=== PATIENT | male | born 1990 | race African-American/Black ===

== ENCOUNTER 2016-10-17 01:43 | Inpatient (IN) | payer OTHER ==
[~2016-10-17] VITALS: Ht 188 cm; Wt 121.5 kg
[~2016-10-17 01:43] MED LIST: ALBUTEROL SULF8.5 GM IH; AUGMENTIN875 MG PO; Aspirin E.C. PO; BACTRIM,SEPT1 TABLET PO; BENTYL10 MG PO; CLEOCIN300 MG PO; CLINDAMYCIN HC300 MG PO; Colace PO; FLONASE16 G1 BOTH NARES; IBUPROFEN800 MG PO; K-Dur PO; KEFLEX500 MG PO; LANTUS 10100 UNITS/ SC; LANTUS 3 M100 UNITS/ SC; LANTUS 3 M100 UNITS1 SC; MOTRIN600 MG PO; MUCUS RELIEF600 M1 PO; Mylicon,Mylanta Gas, PO; NAPROSYN500 MG PO; NOHOMEMEDS; NORCO 5/3251 TABLET PO; NOVOLOG 10100 UNITS/ SC; NOVOLOG PE100 UNITS/ SC; Novolog 100 units/ml SC; PERCOCET 5/31 TABLET PO; ROBITUSSIN NIG118 ML PO; TESSALON PERLE100 MG PO; TRAMADOL HCL50 MG PO; ULTRAM50 MG PO; Vicodin,Norco 5/325 PO; ZITHROMAX Z-PA250 MG PO; ZOFRAN4 MG PO
[2016-10-17 02:07] LABS: CREATININE 0.8 mg/dL (0.6-1.3); POTASSIUM 3.8 mEq/L (3.7-5.4)
[2016-10-17 02:10] LABS: HEMATOCRIT 46.8 % (38.0-50.0); MCH 27.9 PG (29.0-34.0); MCHC 33.1 G/DL (30.0-36.0); MCV 84.3 FL (86-99); RBC DIS.WIDTH-CV 12.5 % (11.8-14.6); RBC DIS.WIDTH-SD 38.5 % (39-53); RED BLOOD COUNT 5.55 M/uL (4.00-5.50); WHITE BLOOD COUNT 6.8 K/uL (4.1-10.2)
[2016-10-17 02:21] LABS: CHLORIDE 100 mEq/L (99-109); POTASSIUM 3.9 mEq/L (3.7-5.4); SODIUM 136 mEq/L (136-147)
[2016-10-17 02:24] LABS: GLUCOSE 379 mg/dL (70-99)
[2016-10-17 02:25] LABS: ANION GAP 11 MEQ/L (2-14); TOTAL BILIRUBIN 0.5 mg/dL (0.0-1.0)
[2016-10-17 02:27] LABS: ALKALINE PHOSPHATASE 81 IU/L (3-129); GFR ESTIMATE (CALCULATED) > 59 mL/min/
[2016-10-17 02:28] LABS: UREA NITROGEN (BUN) 12 mg/dL (9-23)
[2016-10-17 02:29] LABS: DIRECT BILIRUBIN 0.2 mg/dL (0.0-0.3)
[2016-10-17 02:31] LABS: LIPASE 6 U/L (1.0-51.0)
[2016-10-17 02:50] LABS: PLATELET CLUMPS PRESENT - PLATELET COUNT APPEARS ADQ.; PLATELET COUNT UNABLE TO REPORT K/uL (156-360)
[2016-10-17 04:39] LABS: ADD MIUA? NO; BILIRUBIN NEGATIVE; BLOOD NEGATIVE; COLOR YELLOW ((YELLOW)); GLUCOSE (STRIP) >=500; KETONES 20; LEUKOCYTES NEGATIVE; NITRITE NEGATIVE; PROTEIN (STRIP) NEGATIVE; UCUL ADDED? NO; UROBILINOGEN 0.2 MG/DL (0.2-1.0)
[2016-10-17 04:48] LABS: SPECIFIC GRAVITY 1.065 (1.000-1.030)
[2016-10-17 10:04] LABS: POINT-OF-CARE METER ID UU13113675
[2016-10-17 13:21] VITALS: BP 148/85
[2016-10-17 17:25] LABS: POINT-OF-CARE METER ID UU14162508
[2016-10-17 19:28] VITALS: BP 134/69
[2016-10-17 23:23] VITALS: BP 131/73
[2016-10-18 03:48] VITALS: BP 130/60
[2016-10-18 06:35] LABS: POINT-OF-CARE METER ID UU14162508
[2016-10-18 08:05] VITALS: BP 145/79
[2016-10-18 08:13] LABS: ANION GAP 10 MEQ/L (2-14); CHLORIDE 103 MEQ/L (99-109); GFR ESTIMATE (CALCULATED) > 59 mL/min/; GLUCOSE 236 mg/dL (70-99); MAGNESIUM 1.6 mg/dl (1.3-2.7); POTASSIUM 4.3 MEQ/L (3.7-5.4); SAMPLE HEMOLYSIS CHECK 0; SAMPLE ICTERIC CHECK 0; SAMPLE LIPEMIA CHECK 0; SODIUM 136 MEQ/L (136-147); UREA NITROGEN (BUN) 6 mg/dL (9-23)
[2016-10-18 08:25] LABS: HEMATOCRIT 44.3 % (38.0-50.0); MCH 28.5 PG (29.0-34.0); MCHC 33.4 G/DL (30.0-36.0); MCV 85.4 FL (86-99); MEAN PLAT.VOLUME 12.2 uM^3 (9.0-12.4); RBC DIS.WIDTH-CV 12.8 % (11.8-14.6); RBC DIS.WIDTH-SD 40.1 % (39-53); RED BLOOD COUNT 5.19 M/uL (4.00-5.50)
[2016-10-18 09:01] LABS: PLATELET COUNT 199 K/uL (156-360); WHITE BLOOD COUNT 12.8 K/uL (4.1-10.2)
[2016-10-18 11:50] VITALS: BP 157/85
[2016-10-18] MEDS ORDERED: LANTUS 10100 UNITS/ SC (12:49)
[2016-10-18] MEDS ORDERED: NOVOLOG 10100 UNITS/ SC (12:50)
[2016-10-18 15:53] LABS: Estimated Average Glucose 258 mg/dL (70-123); HEMOGLOBIN A1c (GLYCOHEMOGLOB) 10.6 % HGB (Below 5.7)
[2016-10-18 15:55] VITALS: BP 144/87
[2016-10-18 20:58] VITALS: BP 143/78
[2016-10-18 23:17] VITALS: BP 143/81
[2016-10-19 04:36] VITALS: BP 153/78
[2016-10-19 06:23] LABS: POINT-OF-CARE METER ID UU14162508
[2016-10-19 06:49] LABS: HEMATOCRIT 41.9 % (38.0-50.0); MCH 27.8 PG (29.0-34.0); MCHC 32.5 G/DL (30.0-36.0); MCV 85.7 FL (86-99); MEAN PLAT.VOLUME 12.5 uM^3 (9.0-12.4); PLATELET COUNT 196 K/uL (156-360); RBC DIS.WIDTH-CV 13.2 % (11.8-14.6); RBC DIS.WIDTH-SD 41.2 % (39-53); RED BLOOD COUNT 4.89 M/uL (4.00-5.50)
[2016-10-19 07:12] LABS: ANION GAP 11 MEQ/L (2-14); CHLORIDE 104 MEQ/L (99-109); GFR ESTIMATE (CALCULATED) > 59 mL/min/; GLUCOSE 224 mg/dL (70-99); MAGNESIUM 1.7 mg/dl (1.3-2.7); POTASSIUM 3.9 MEQ/L (3.7-5.4); SAMPLE HEMOLYSIS CHECK 0; SAMPLE ICTERIC CHECK 0; SAMPLE LIPEMIA CHECK 0; SODIUM 138 MEQ/L (136-147); UREA NITROGEN (BUN) 7 mg/dL (9-23)
[2016-10-19 07:45] VITALS: BP 143/87
[2016-10-19 12:21] VITALS: BP 170/90
[2016-10-19 16:48] VITALS: BP 157/90
[2016-10-19 20:00] VITALS: BP 162/81
[2016-10-20 00:21] VITALS: BP 143/84
[2016-10-20 04:40] VITALS: BP 128/58
[2016-10-20 06:30] VITALS: BP 134/60
[2016-10-20 06:50] LABS: HEMATOCRIT 38.9 % (38.0-50.0); MCH 28.3 PG (29.0-34.0); MCHC 32.6 G/DL (30.0-36.0); MCV 86.6 FL (86-99); MEAN PLAT.VOLUME 11.8 uM^3 (9.0-12.4); PLATELET COUNT 182 K/uL (156-360); RBC DIS.WIDTH-CV 13.2 % (11.8-14.6); RBC DIS.WIDTH-SD 41.4 % (39-53); RED BLOOD COUNT 4.49 M/uL (4.00-5.50); WHITE BLOOD COUNT 7.5 K/uL (4.1-10.2)
[2016-10-20 07:06] LABS: ANION GAP 8 MEQ/L (2-14); CHLORIDE 104 MEQ/L (99-109); GFR ESTIMATE (CALCULATED) > 59 mL/min/; GLUCOSE 197 mg/dL (70-99); MAGNESIUM 1.6 mg/dl (1.3-2.7); POTASSIUM 3.6 MEQ/L (3.7-5.4); SAMPLE HEMOLYSIS CHECK 0; SAMPLE ICTERIC CHECK 0; SAMPLE LIPEMIA CHECK 0; SODIUM 140 MEQ/L (136-147); UREA NITROGEN (BUN) 6 mg/dL (9-23)
[2016-10-20 18:56] VITALS: BP 132/77
[2016-10-20 21:52] LABS: POINT-OF-CARE METER ID UU14162508
[2016-10-20 23:56] VITALS: BP 161/81
[2016-10-21 03:19] VITALS: BP 146/75
[2016-10-21 06:28] LABS: POINT-OF-CARE METER ID UU14162508
[2016-10-21 07:51] VITALS: BP 134/67
[2016-10-21 08:02] LABS: HEMATOCRIT 38.6 % (38.0-50.0); MCH 28.1 PG (29.0-34.0); MCHC 32.4 G/DL (30.0-36.0); MCV 86.7 FL (86-99); MEAN PLAT.VOLUME 11.3 uM^3 (9.0-12.4); PLATELET COUNT 193 K/uL (156-360); RBC DIS.WIDTH-CV 12.9 % (11.8-14.6); RED BLOOD COUNT 4.45 M/uL (4.00-5.50); WHITE BLOOD COUNT 5.6 K/uL (4.1-10.2)
[2016-10-21 08:27] LABS: ANION GAP 8 MEQ/L (2-14); CHLORIDE 103 MEQ/L (99-109); GFR ESTIMATE (CALCULATED) > 59 mL/min/; GLUCOSE 210 mg/dL (70-99); MAGNESIUM 1.5 mg/dl (1.3-2.7); POTASSIUM 3.9 MEQ/L (3.7-5.4); SAMPLE HEMOLYSIS CHECK 0; SAMPLE ICTERIC CHECK 0; SAMPLE LIPEMIA CHECK 0; SODIUM 140 MEQ/L (136-147); UREA NITROGEN (BUN) 4 mg/dL (9-23)
[2016-10-21 11:39] VITALS: BP 148/71
[2016-10-21 16:39] VITALS: BP 142/84
[2016-10-21 20:29] VITALS: BP 137/85
[2016-10-21 21:24] LABS: POINT-OF-CARE METER ID UU14162508
[2016-10-22] VITALS: BP 144/67
[2016-10-22 04:00] VITALS: BP 133/78
[2016-10-22 06:32] LABS: POINT-OF-CARE METER ID UU14162508
[2016-10-22 07:50] LABS: HEMATOCRIT 36.2 % (38.0-50.0); MCH 28.4 PG (29.0-34.0); MCHC 32.6 G/DL (30.0-36.0); MEAN PLAT.VOLUME 10.8 uM^3 (9.0-12.4); PLATELET COUNT 214 K/uL (156-360); RBC DIS.WIDTH-CV 12.7 % (11.8-14.6); RBC DIS.WIDTH-SD 40.5 % (39-53); RED BLOOD COUNT 4.16 M/uL (4.00-5.50)
[2016-10-22 07:56] LABS: WHITE BLOOD COUNT 3.7 K/uL (4.1-10.2)
[2016-10-22 08:09] LABS: ANION GAP 7 MEQ/L (2-14); CHLORIDE 104 MEQ/L (99-109); GFR ESTIMATE (CALCULATED) > 59 mL/min/; GLUCOSE 191 mg/dL (70-99); MAGNESIUM 1.4 mg/dl (1.3-2.7); POTASSIUM 3.7 MEQ/L (3.7-5.4); SAMPLE HEMOLYSIS CHECK 0; SAMPLE ICTERIC CHECK 0; SAMPLE LIPEMIA CHECK 0; SODIUM 141 MEQ/L (136-147); UREA NITROGEN (BUN) 6 mg/dL (9-23)
[2016-10-22 08:15] VITALS: BP 139/80
[2016-10-22 15:10] VITALS: BP 139/80
[2016-10-22 20:36] VITALS: BP 157/82
[2016-10-22 23:41] VITALS: BP 148/80
[2016-10-23 04:24] VITALS: BP 138/76
[2016-10-23 06:38] LABS: POINT-OF-CARE METER ID UU14162508
[2016-10-23 07:11] LABS: HEMATOCRIT 39.6 % (38.0-50.0); MCH 27.7 PG (29.0-34.0); MCHC 33.1 G/DL (30.0-36.0); MCV 83.7 FL (86-99); MEAN PLAT.VOLUME 11.1 uM^3 (9.0-12.4); PLATELET COUNT 247 K/uL (156-360); RBC DIS.WIDTH-CV 12.1 % (11.8-14.6); RBC DIS.WIDTH-SD 37.3 % (39-53); RED BLOOD COUNT 4.73 M/uL (4.00-5.50); WHITE BLOOD COUNT 4.8 K/uL (4.1-10.2)
[2016-10-23 07:35] LABS: ANION GAP 9 MEQ/L (2-14); CHLORIDE 102 MEQ/L (99-109); GFR ESTIMATE (CALCULATED) > 59 mL/min/; GLUCOSE 199 mg/dL (70-99); MAGNESIUM 1.4 mg/dl (1.3-2.7); POTASSIUM 3.9 MEQ/L (3.7-5.4); SAMPLE HEMOLYSIS CHECK 0; SAMPLE ICTERIC CHECK 0; SAMPLE LIPEMIA CHECK 0; SODIUM 137 MEQ/L (136-147); UREA NITROGEN (BUN) 5 mg/dL (9-23)
[2016-10-23 08:39] VITALS: BP 132/63
[2016-10-23 11:45] LABS: POINT-OF-CARE METER ID UU14162508
[2016-10-23 16:16] VITALS: BP 141/80
[2016-10-23 16:56] LABS: POINT-OF-CARE METER ID UU14162508
[2016-10-23 21:17] LABS: POINT-OF-CARE METER ID UU14162508
[2016-10-23 23:47] VITALS: BP 148/83
[2016-10-24 02:03] VITALS: BP 141/80
[2016-10-24 06:45] LABS: ANION GAP 8 MEQ/L (2-14); CHLORIDE 104 MEQ/L (99-109); GFR ESTIMATE (CALCULATED) > 59 mL/min/; GLUCOSE 195 mg/dL (70-99); MAGNESIUM 1.4 mg/dl (1.3-2.7); POTASSIUM 3.7 MEQ/L (3.7-5.4); SAMPLE HEMOLYSIS CHECK 0; SAMPLE ICTERIC CHECK 0; SAMPLE LIPEMIA CHECK 0; SODIUM 139 MEQ/L (136-147); UREA NITROGEN (BUN) 6 mg/dL (9-23)
[2016-10-24 06:48] LABS: HEMATOCRIT 37.7 % (38.0-50.0); MCH 28.2 PG (29.0-34.0); MCHC 33.7 G/DL (30.0-36.0); MCV 83.8 FL (86-99); MEAN PLAT.VOLUME 10.9 uM^3 (9.0-12.4); PLATELET COUNT 236 K/uL (156-360); RBC DIS.WIDTH-CV 12.2 % (11.8-14.6); RBC DIS.WIDTH-SD 37.3 % (39-53); WHITE BLOOD COUNT 4.6 K/uL (4.1-10.2)
[2016-10-24 07:52] VITALS: BP 139/71
[2016-10-24 09:50] LABS: C DIFF TOXIN NEGATIVE (NEGATIVE); PROBE CHECK PASS; SPECIMEN PROCESSING CONTROL PASS
[2016-10-24 16:31] VITALS: BP 162/81
[2016-10-24 23:50] VITALS: BP 123/64
[2016-10-25 02:30] VITALS: BP 133/77
[2016-10-25 03:03] VITALS: BP 133/77
[2016-10-25 07:00] VITALS: BP 140/76
[2016-10-25 07:43] LABS: HEMATOCRIT 40.1 % (38.0-50.0); MCH 27.8 PG (29.0-34.0); MCHC 33.2 G/DL (30.0-36.0); MCV 83.9 FL (86-99); MEAN PLAT.VOLUME 11.3 uM^3 (9.0-12.4); PLATELET COUNT 298 K/uL (156-360); RBC DIS.WIDTH-CV 12.2 % (11.8-14.6); RBC DIS.WIDTH-SD 37.3 % (39-53); RED BLOOD COUNT 4.78 M/uL (4.00-5.50); WHITE BLOOD COUNT 4.9 K/uL (4.1-10.2)
[2016-10-25 08:02] LABS: CHLORIDE 105 mEq/L (99-109); POTASSIUM 4.3 mEq/L (3.7-5.4); SODIUM 139 mEq/L (136-147)
[2016-10-25 08:03] LABS: MAGNESIUM 1.7 mg/dL (1.3-2.7)
[2016-10-25 08:04] LABS: GLUCOSE 219 mg/dL (70-99)
[2016-10-25 08:05] LABS: ANION GAP 10 MEQ/L (2-14)
[2016-10-25 08:08] LABS: GFR ESTIMATE (CALCULATED) > 59 mL/min/
[2016-10-25 08:09] LABS: UREA NITROGEN (BUN) 4 mg/dL (9-23)
[2016-10-25 11:31] VITALS: BP 134/79
[2016-10-25 15:44] VITALS: BP 126/71
[2016-10-25 16:24] LABS: POINT-OF-CARE METER ID UU13113725
[2016-10-25 22:53] VITALS: BP 132/78
[2016-10-26 07:01] LABS: HEMATOCRIT 39.8 % (38.0-50.0); MCHC 33.7 G/DL (30.0-36.0); MCV 83.1 FL (86-99); MEAN PLAT.VOLUME 10.6 uM^3 (9.0-12.4); PLATELET COUNT 284 K/uL (156-360); RBC DIS.WIDTH-CV 12.2 % (11.8-14.6); RBC DIS.WIDTH-SD 37.2 % (39-53); RED BLOOD COUNT 4.79 M/uL (4.00-5.50); WHITE BLOOD COUNT 4.9 K/uL (4.1-10.2)
[2016-10-26 07:09] VITALS: BP 123/75
[2016-10-26 07:35] LABS: ANION GAP 7 MEQ/L (2-14); CHLORIDE 105 MEQ/L (99-109); GFR ESTIMATE (CALCULATED) > 59 mL/min/; GLUCOSE 142 mg/dL (70-99); MAGNESIUM 1.7 mg/dl (1.3-2.7); SAMPLE HEMOLYSIS CHECK 0; SAMPLE ICTERIC CHECK 0; SAMPLE LIPEMIA CHECK 0; SODIUM 139 MEQ/L (136-147); UREA NITROGEN (BUN) 4 mg/dL (9-23)
[2016-10-26 15:39] VITALS: BP 129/66
[2016-10-26 20:42] LABS: POINT-OF-CARE METER ID UU13113725
[2016-10-26 22:24] VITALS: BP 126/87
[2016-10-26 22:33] VITALS: BP 139/69
[2016-10-27 05:43] LABS: POINT-OF-CARE METER ID UU13113725
[2016-10-27 06:55] VITALS: BP 135/70
[2016-10-27 07:07] LABS: MCH 27.8 PG (29.0-34.0); MCHC 33.6 G/DL (30.0-36.0); MCV 82.8 FL (86-99); MEAN PLAT.VOLUME 10.5 uM^3 (9.0-12.4); PLATELET COUNT 333 K/uL (156-360); RBC DIS.WIDTH-CV 12.2 % (11.8-14.6); RED BLOOD COUNT 5.07 M/uL (4.00-5.50); WHITE BLOOD COUNT 5.2 K/uL (4.1-10.2)
[2016-10-27 07:13] LABS: ALKALINE PHOSPHATASE 62 IU/L (3-129); ANION GAP 7 MEQ/L (2-14); CHLORIDE 102 MEQ/L (99-109); DIRECT BILIRUBIN 0.1 mg/dL (0.0-0.3); GFR ESTIMATE (CALCULATED) > 59 mL/min/; GLUCOSE 185 mg/dL (70-99); MAGNESIUM 1.8 mg/dl (1.3-2.7); POTASSIUM 4.2 MEQ/L (3.7-5.4); SAMPLE HEMOLYSIS CHECK 0; SAMPLE ICTERIC CHECK 0; SAMPLE LIPEMIA CHECK 0; SODIUM 136 MEQ/L (136-147); TOTAL BILIRUBIN 0.5 MG/DL (0.0-1.0); UREA NITROGEN (BUN) 6 mg/dL (9-23)
[2016-10-27 15:39] VITALS: BP 138/60
[2016-10-27 16:12] LABS: INTER. NORMALIZED RATIO 1.2; PTT 28.1 (25-32)
[2016-10-27 16:33] LABS: POINT-OF-CARE METER ID UU13113725
[2016-10-27 22:21] VITALS: BP 136/70
[2016-10-28 06:17] LABS: POINT-OF-CARE METER ID UU13113725
[2016-10-28 06:30] LABS: HEMATOCRIT 42.6 % (38.0-50.0); MCH 28.2 PG (29.0-34.0); MCV 82.7 FL (86-99); MEAN PLAT.VOLUME 10.3 uM^3 (9.0-12.4); PLATELET COUNT 349 K/uL (156-360); RBC DIS.WIDTH-CV 12.2 % (11.8-14.6); RBC DIS.WIDTH-SD 37.1 % (39-53); RED BLOOD COUNT 5.15 M/uL (4.00-5.50); WHITE BLOOD COUNT 5.6 K/uL (4.1-10.2)
[2016-10-28 06:51] VITALS: BP 114/62
[2016-10-28 08:12] LABS: Estimated Average Glucose 249 mg/dL (70-123); HEMOGLOBIN A1c (GLYCOHEMOGLOB) 10.3 % HGB (Below 5.7)
[2016-10-28 11:36] LABS: ANION GAP 8 MEQ/L (2-14); CHLORIDE 101 MEQ/L (99-109); GFR ESTIMATE (CALCULATED) > 59 mL/min/; GLUCOSE 156 mg/dL (70-99); MAGNESIUM 1.9 mg/dl (1.3-2.7); PREALBUMIN 19.6 mg/dL (10-40); SAMPLE HEMOLYSIS CHECK 1; SAMPLE ICTERIC CHECK 0; SAMPLE LIPEMIA CHECK 0; SODIUM 136 MEQ/L (136-147); TRIGLYCERIDES 89 MG/DL (Normal: <150); UREA NITROGEN (BUN) 10 mg/dL (9-23)
[2016-10-28 11:39] LABS: POTASSIUM 4.4 MEQ/L (3.7-5.4)
[2016-10-28 12:55] VITALS: BP 124/62
[2016-10-28 16:08] LABS: INTER. NORMALIZED RATIO 1.2; PROTHROMBIN TIME 12.6 (9.2-11.2); PTT 37.3 (25-32)
[2016-10-28 16:17] VITALS: BP 131/79
[2016-10-28 16:35] LABS: POINT-OF-CARE METER ID UU13113725
[2016-10-29 07:04] VITALS: BP 133/74
[2016-10-29 07:29] LABS: INTER. NORMALIZED RATIO 1.4; PROTHROMBIN TIME 14.6 (9.2-11.2); PTT 44.7 (25-32)
[2016-10-29 07:43] LABS: ANION GAP 9 MEQ/L (2-14); CHLORIDE 103 MEQ/L (99-109); GFR ESTIMATE (CALCULATED) > 59 mL/min/; GLUCOSE 227 mg/dL (70-99); MAGNESIUM 1.8 mg/dl (1.3-2.7); POTASSIUM 4.4 MEQ/L (3.7-5.4); SAMPLE HEMOLYSIS CHECK 0; SAMPLE ICTERIC CHECK 0; SAMPLE LIPEMIA CHECK 0; SODIUM 137 MEQ/L (136-147); UREA NITROGEN (BUN) 9 mg/dL (9-23)
[2016-10-29] MEDS ORDERED: XARELTO15 MG PO (12:34)
[2016-10-29 14:53] VITALS: BP 139/76
[2016-10-29 19:06] VITALS: BP 124/77
[2016-10-29 22:38] VITALS: BP 135/80
[2016-10-30 00:17] VITALS: BP 146/85
[2016-10-30 04:32] LABS: HEMATOCRIT 42.6 % (38.0-50.0); MCHC 33.6 G/DL (30.0-36.0); MCV 83.5 FL (86-99); MEAN PLAT.VOLUME 10.3 uM^3 (9.0-12.4); PLATELET COUNT 345 K/uL (156-360); RBC DIS.WIDTH-CV 12.4 % (11.8-14.6); WHITE BLOOD COUNT 6.2 K/uL (4.1-10.2)
[2016-10-30 04:45] LABS: INTER. NORMALIZED RATIO 1.3; PROTHROMBIN TIME 13.3 (9.2-11.2); PTT 61.8 (25-32)
[2016-10-30 05:04] LABS: CHLORIDE 104 mEq/L (99-109); POTASSIUM 4.3 mEq/L (3.7-5.4); SODIUM 136 mEq/L (136-147)
[2016-10-30 05:05] LABS: MAGNESIUM 1.7 mg/dL (1.3-2.7)
[2016-10-30 05:06] LABS: GLUCOSE 187 mg/dL (70-99)
[2016-10-30 05:07] LABS: ANION GAP 11 MEQ/L (2-14)
[2016-10-30 05:10] LABS: GFR ESTIMATE (CALCULATED) > 59 mL/min/
[2016-10-30 05:11] LABS: UREA NITROGEN (BUN) 14 mg/dL (9-23)
[2016-10-30 07:12] VITALS: BP 115/68
[2016-10-30 10:52] LABS: POINT-OF-CARE METER ID UU13113725
[2016-10-30 15:42] VITALS: BP 129/90
[2016-10-30 16:06] LABS: POINT-OF-CARE METER ID UU13113725
[2016-10-30 21:12] LABS: POINT-OF-CARE METER ID UU13113725
[2016-10-30 22:51] VITALS: BP 121/80
[2016-10-31 05:55] LABS: POINT-OF-CARE METER ID UU13113725
[2016-10-31 07:05] VITALS: BP 166/61
[2016-10-31 09:32] LABS: INTER. NORMALIZED RATIO 1.1; PROTHROMBIN TIME 11.6 (9.2-11.2)
[2016-10-31 10:07] LABS: ANION GAP 11 MEQ/L (2-14); CHLORIDE 102 MEQ/L (99-109); GFR ESTIMATE (CALCULATED) > 59 mL/min/; GLUCOSE 207 mg/dL (70-99); MAGNESIUM 1.9 mg/dl (1.3-2.7); POTASSIUM 4.6 MEQ/L (3.7-5.4); SAMPLE HEMOLYSIS CHECK 0; SAMPLE ICTERIC CHECK 0; SAMPLE LIPEMIA CHECK 0; SODIUM 135 MEQ/L (136-147); UREA NITROGEN (BUN) 15 mg/dL (9-23)
[2016-10-31 11:34] LABS: POINT-OF-CARE METER ID UU13113725
[2016-10-31 15:21] VITALS: BP 125/71
[2016-10-31 15:35] LABS: POINT-OF-CARE METER ID UU13113725
[2016-10-31 23:23] VITALS: BP 135/90
[2016-11-01 06:17] LABS: HEMATOCRIT 44.9 % (38.0-50.0); MCH 27.9 PG (29.0-34.0); MCHC 33.9 G/DL (30.0-36.0); MCV 82.4 FL (86-99); MEAN PLAT.VOLUME 10.8 uM^3 (9.0-12.4); PLATELET COUNT 336 K/uL (156-360); RBC DIS.WIDTH-CV 12.4 % (11.8-14.6); RBC DIS.WIDTH-SD 37.2 % (39-53); RED BLOOD COUNT 5.45 M/uL (4.00-5.50)
[2016-11-01 06:41] LABS: ANION GAP 9 MEQ/L (2-14); CHLORIDE 101 MEQ/L (99-109); GFR ESTIMATE (CALCULATED) > 59 mL/min/; GLUCOSE 228 mg/dL (70-99); MAGNESIUM 1.7 mg/dl (1.3-2.7); POTASSIUM 4.7 MEQ/L (3.7-5.4); SAMPLE HEMOLYSIS CHECK 0; SAMPLE ICTERIC CHECK 0; SAMPLE LIPEMIA CHECK 0; SODIUM 132 MEQ/L (136-147); UREA NITROGEN (BUN) 13 mg/dL (9-23)
[2016-11-01 07:17] VITALS: BP 123/72
[2016-11-01 07:39] LABS: POINT-OF-CARE METER ID UU13113725
[2016-11-01 11:18] LABS: POINT-OF-CARE METER ID UU13113725
[2016-11-01 15:59] VITALS: BP 120/82
[2016-11-01 16:23] LABS: POINT-OF-CARE METER ID UU13113725
[2016-11-01 20:50] LABS: POINT-OF-CARE METER ID UU13113725
[2016-11-01 23:51] VITALS: BP 117/58
[2016-11-02 07:17] VITALS: BP 113/55
[2016-11-02 08:11] LABS: ANION GAP 9 MEQ/L (2-14); CHLORIDE 105 MEQ/L (99-109); GFR ESTIMATE (CALCULATED) > 59 mL/min/; GLUCOSE 171 mg/dL (70-99); MAGNESIUM 1.9 mg/dl (1.3-2.7); POTASSIUM 4.4 MEQ/L (3.7-5.4); SAMPLE HEMOLYSIS CHECK 0; SAMPLE ICTERIC CHECK 0; SAMPLE LIPEMIA CHECK 0; SODIUM 136 MEQ/L (136-147)
[2016-11-02 08:18] LABS: UREA NITROGEN (BUN) 22 mg/dL (9-23)
[2016-11-02 11:45] LABS: POINT-OF-CARE METER ID UU13113725
[2016-11-02 15:57] VITALS: BP 134/85
[2016-11-02 16:16] LABS: POINT-OF-CARE METER ID UU13113725
[2016-11-02 20:51] LABS: POINT-OF-CARE METER ID UU13113725
[2016-11-02 23:18] VITALS: BP 127/82
[2016-11-03 05:58] LABS: ANION GAP 6 MEQ/L (2-14); CHLORIDE 104 MEQ/L (99-109); GFR ESTIMATE (CALCULATED) > 59 mL/min/; GLUCOSE 155 mg/dL (70-99); MAGNESIUM 1.8 mg/dl (1.3-2.7); POTASSIUM 3.8 MEQ/L (3.7-5.4); SAMPLE HEMOLYSIS CHECK 0; SAMPLE ICTERIC CHECK 0; SAMPLE LIPEMIA CHECK 0; SODIUM 134 MEQ/L (136-147); UREA NITROGEN (BUN) 19 mg/dL (9-23)
[2016-11-03 07:29] VITALS: BP 97/54
[2016-11-03 11:21] LABS: POINT-OF-CARE METER ID UU13113725
[2016-11-03 15:29] VITALS: BP 130/74
[2016-11-03 23:00] VITALS: BP 132/74
[2016-11-04 07:15] VITALS: BP 129/77
[2016-11-04 07:51] LABS: EOSINOPHIL (%) 2.3 % (0-5); EOSINOPHIL COUNT 0.1 K/uL (0-0.3); HEMATOCRIT 38.7 % (38.0-50.0); IMMATURE GRANULOCYTE (%) 0.7 % (0.0-0.7); INSTRUMENT ABS NEUTROPHIL CT 2.6 K/uL; LYMPHOCYTE COUNT 1.3 K/uL (1.0-2.8); MCHC 32.8 G/DL (30.0-36.0); MCV 85.2 FL (86-99); MEAN PLAT.VOLUME 11.5 uM^3 (9.0-12.4); MONOCYTE (%) 9.9 % (3-12); MONOCYTE COUNT 0.4 K/uL (0-0.8); NEUTROPHIL (%) 57.6 % (45-76); NEUTROPHIL COUNT 2.6 K/uL (1.8-6.4); PLATELET COUNT 246 K/uL (156-360); RBC DIS.WIDTH-SD 40.4 % (39-53); RED BLOOD COUNT 4.54 M/uL (4.00-5.50); WHITE BLOOD COUNT 4.4 K/uL (4.1-10.2)
[2016-11-04 08:10] LABS: ALKALINE PHOSPHATASE 77 IU/L (3-129); ANION GAP 7 MEQ/L (2-14); CHLORIDE 109 MEQ/L (99-109); DIRECT BILIRUBIN 0.1 mg/dL (0.0-0.3); GFR ESTIMATE (CALCULATED) > 59 mL/min/; GLUCOSE 154 mg/dL (70-99); MAGNESIUM 1.7 mg/dl (1.3-2.7); PREALBUMIN 18.7 mg/dL (10-40); SAMPLE HEMOLYSIS CHECK 1; SAMPLE ICTERIC CHECK 0; SAMPLE LIPEMIA CHECK 0; SODIUM 136 MEQ/L (136-147); TOTAL BILIRUBIN 0.4 MG/DL (0.0-1.0); TRIGLYCERIDES 101 MG/DL (Normal: <150); UREA NITROGEN (BUN) 19 mg/dL (9-23)
[2016-11-04 08:19] LABS: POTASSIUM 4.4 MEQ/L (3.7-5.4)
[2016-11-04 11:22] LABS: POINT-OF-CARE METER ID UU13113725
[2016-11-04 15:14] VITALS: BP 131/79
[2016-11-04 16:26] LABS: POINT-OF-CARE METER ID UU13113725
[2016-11-04 20:41] LABS: POINT-OF-CARE METER ID UU13113725
[2016-11-04 23:06] VITALS: BP 117/64
[2016-11-05 05:50] LABS: POINT-OF-CARE METER ID UU13113725
[2016-11-05 07:04] LABS: ANION GAP 7 MEQ/L (2-14); CHLORIDE 108 MEQ/L (99-109); GFR ESTIMATE (CALCULATED) > 59 mL/min/; GLUCOSE 162 mg/dL (70-99); MAGNESIUM 1.7 mg/dl (1.3-2.7); POTASSIUM 4.4 MEQ/L (3.7-5.4); SAMPLE HEMOLYSIS CHECK 0; SAMPLE ICTERIC CHECK 0; SAMPLE LIPEMIA CHECK 0; SODIUM 139 MEQ/L (136-147); UREA NITROGEN (BUN) 18 mg/dL (9-23)
[2016-11-05 07:05] VITALS: BP 127/70
[2016-11-05 10:32] LABS: DRVVT Mixing Study Interp Not Indicated (()); PROTEIN C FUNCTIONAL ACTIVITY+ 160 % (70-180); PTT-LA 106 sec (<=40); Protein S, Free 72 % normal (57-171); Thrombosis Consult Level Limited (()); dRVVT Screen 34 sec (<=45)
[2016-11-05 11:10] LABS: URINE UREA NITROGEN 16595 MG/24 HR
[2016-11-05] MEDS ORDERED: LANTUS 10100 UNITS/ SC (13:53)
[2016-11-05] MEDS ORDERED: ENDOCET 5-3251 EACH PO ×2 (13:53→14:17)
[2016-11-05] MEDS ORDERED: EASY TOUCH HYP1 EA10 SC (14:02)
[2016-11-05] MEDS ORDERED: NOVOLOG 10100 UNITS/ SC (14:02)
[2016-11-05] MEDS ORDERED: TORADOL10 MG PO (14:18)
[2016-11-05 15:25] VITALS: BP 130/74
[2016-11-06 10:32] LABS: ANTITHROMBIN III ACTIVITY+ 80 % activi (80-120)
== END 2016-11-05 17:55 | disposition home or self-care (01) | DRG 329 ==
LOC: EME → EDBD 01:43 → EME 01:43 → SDC 05:35 → EME 05:35 → 2EASTP 09:57 → 2SOUTH 09:57 → 2EASTP 13:12 → 5EAST 10-24 01:51
PROVIDERS: Emergency Medicine; Hospitalist; Internal Medicine Hematology & Oncology; Physician Assistant; Surgery
PROC: 0FB40ZZ Excision of Gallbladder, Open Approach (ICD-10-PCS; principal; 2016-10-18)
PROC: 0HB7XZZ Excision of Abdomen Skin, External Approach (ICD-10-PCS; principal; 2016-10-18)
PROC: 0DBA0ZZ Excision of Jejunum, Open Approach (ICD-10-PCS; principal; 2016-10-18)
PROC: 0DBJ0ZZ Excision of Appendix, Open Approach (ICD-10-PCS; principal; 2016-10-18)
PROC: 3E0M05Z Introduction of Adhesion Barrier into Peritoneal Cavity, Open Approach (ICD-10-PCS; principal; 2016-10-18)
PROC: 0DN80ZZ Release Small Intestine, Open Approach (ICD-10-PCS; principal; 2016-10-18)
PROC: 3E0436Z Introduction of Nutritional Substance into Central Vein, Percutaneous Approach (ICD-10-PCS; 2016-10-28)
DX: K56.5 Intestinal adhesions [bands] with obstruction (postinfection) (principal); K80.10 Calculus of gallbladder with chronic cholecystitis without obstruction; R78.81 Bacteremia; E44.1 Mild protein-calorie malnutrition; I81 Portal vein thrombosis; K56.7 Ileus, unspecified; E11.65 Type 2 diabetes mellitus with hyperglycemia; K31.84 Gastroparesis; E11.43 Type 2 diabetes mellitus with diabetic autonomic (poly)neuropathy; I10 Essential (primary) hypertension; J45.909 Unspecified asthma, uncomplicated; F17.210 Nicotine dependence, cigarettes, uncomplicated; T38.3X6A Underdosing of insulin and oral hypoglycemic [antidiabetic] drugs, initial encounter; Z91.128 Patient's intentional underdosing of medication regimen for other reason; Z79.4 Long term (current) use of insulin; Z68.34 Body mass index [BMI] 34.0-34.9, adult
CPT/HCPCS: 74020; 74177; 76937; 80047; 80048; 80053; 80076; 81003; 81050; 81240 90; 82248; 82948; 83036; 83090 90; 83605; 83690; 83735; 84100; 84134; 84478; 84540; 84630 90; 85025; 85027; 85240 90; 85300 90; 85303 90; 85305 90; 85306 90; 85307 90; 85610; 85613 90; 85730; 85730 90; 86146 90; 86147 90; 87040; 87493; 87801; 88302; 88304; 88307; 99281; 99285; J0295; J0330; J1170; J1200; J1364; J1650; J1815; J1885; J2250; J2270; J2405; J2543; J2710; J2765; J3010; J3475; J3480; J7030; J7050; J7120; S0028

== ENCOUNTER 2017-10-17 06:27 | Emergency (ER) | payer OTHER ==
[~2017-10-17] VITALS: Ht 188 cm; Wt 106.2 kg
[~2017-10-17 06:27] MED LIST changes: +EASY TOUCH HYP1 EA10 SC; +ENDOCET 5-3251 EACH PO; +TORADOL10 MG PO; +XARELTO15 MG PO
[2017-10-17 07:02] LABS: BASOPHIL (%) 0.3 % (0-1); EOSINOPHIL (%) 2.1 % (0-5); EOSINOPHIL COUNT 0.2 K/uL (0-0.3); HEMATOCRIT 47.9 % (38.0-50.0); HEMOGLOBIN 16.8 G/DL (12.5-16.6); IMMATURE GRANULOCYTE (%) 0.4 % (0.0-0.7); LYMPHOCYTE (%) 24.1 % (15-42); LYMPHOCYTE COUNT 1.8 K/uL (1.0-2.8); MCH 29.8 PG (29.0-34.0); MCHC 35.1 G/DL (30.0-36.0); MCV 85.1 FL (86-99); MONOCYTE (%) 8.4 % (3-12); MONOCYTE COUNT 0.6 K/uL (0-0.8); NEUTROPHIL (%) 64.7 % (45-76); NEUTROPHIL COUNT 4.7 K/uL (1.8-6.4); PLATELET COUNT 163 K/uL (156-360); RBC DIS.WIDTH-CV 12.4 % (11.8-14.6); RBC DIS.WIDTH-SD 38.3 % (39-53); RED BLOOD COUNT 5.63 M/uL (4.00-5.50); WHITE BLOOD COUNT 7.3 K/uL (4.1-10.2)
[2017-10-17 07:03] LABS: CARBON DIOXIDE (BICARBONATE) 25.6 MEQ/L (20-31)
[2017-10-17 07:54] LABS: APPEARANCE CLEAR ((CLEAR)); BILIRUBIN NEGATIVE; BLOOD NEGATIVE; COLOR STRAW ((YELLOW)); GLUCOSE (STRIP) >=500; KETONES NEGATIVE; LEUKOCYTES NEGATIVE; NITRITE NEGATIVE; PROTEIN (STRIP) NEGATIVE; UCUL ADDED? NO
[2017-10-17 08:07] LABS: THC CANNABINOIDS PRESUMPTIVE POSITIVE (50 ng/mL)
[2017-10-17 08:08] LABS: AMPHETAMINE NEGATIVE (500 ng/mL); BARBITURATES NEGATIVE (200 ng/mL); BENZODIAZEPINES NEGATIVE (150 ng/mL); BUPRENORPHINE NEGATIVE (10 ng/mL); COCAINE NEGATIVE (150 ng/mL); METHADONE NEGATIVE (200 ng/mL); METHAMPHETAMINE NEGATIVE (500 ng/mL); OPIATES (MORPHINE) PRESUMPTIVE POSITIVE (100 ng/mL); OXYCODONE PRESUMPTIVE POSITIVE (100 ng/mL); PHENCYCLIDINE NEGATIVE (25 ng/mL); PROPOXYPHENE NEGATIVE (300 ng/mL); TRICYCLIC ANTIDEPRESSANTS NEGATIVE (300 ng/mL)
[2017-10-17 09:05] LABS: ALBUMIN 3.6 G/DL (3.2-4.8); ALKALINE PHOSPHATASE 158 IU/L (3-129); ALT (GPT) 25 IU/L (3-49); AST (GOT) 23 IU/L (2-34); CHLORIDE 97 MEQ/L (99-109); DIRECT BILIRUBIN 0.2 mg/dL (0.0-0.3); GFR ESTIMATE (CALCULATED) > 59 mL/min/ (58.99-99999); POTASSIUM 4.3 MEQ/L (3.7-5.4); SODIUM 132 MEQ/L (136-147); TOTAL BILIRUBIN 0.6 MG/DL (0.0-1.0); TOTAL PROTEIN 7.6 G/DL (6.4-8.3); UREA NITROGEN (BUN) 10 mg/dL (9-23)
[2017-10-17 09:07] LABS: GLUCOSE 549 mg/dL (70-99)
[2017-10-17 10:11] LABS: LIPASE 20 U/L (1.0-51.0)
[2017-10-17] MEDS ORDERED: LANTUS 10100 UNITS/ SC ×2 (10:55→13:42)
[2017-10-17] MEDS ORDERED: NOVOLOG 10100 UNITS/ SC (10:56)
[2017-10-17 14:18] VITALS: BP 117/71
== END 2017-10-17 14:39 | disposition left against medical advice (07) ==
LOC: EME 06:27
PROVIDERS: Emergency Medicine
DX: E11.65 Type 2 diabetes mellitus with hyperglycemia (principal); Z91.14 Patient's other noncompliance with medication regimen; Z79.4 Long term (current) use of insulin; R11.2 Nausea with vomiting, unspecified; T50.901A Poisoning by unspecified drugs, medicaments and biological substances, accidental (unintentional), initial encounter; M54.5 Low back pain; F11.20 Opioid dependence, uncomplicated; Z86.73 Personal history of transient ischemic attack (TIA), and cerebral infarction without residual deficits; F17.200 Nicotine dependence, unspecified, uncomplicated
CPT/HCPCS: 80048; 80076; 81003; 82803; 82948; 83690; 84999; 85025; 90839; 99281; 99285; J2405; J7030

== ENCOUNTER 2017-10-20 05:01 | Emergency (ER) | payer OTHER ==
[~2017-10-20] VITALS: Ht 188 cm; Wt 106.5 kg
[2017-10-20] MEDS ORDERED: BACTRIM,SEPT1 TABLET PO (05:17)
[2017-10-20] MEDS ORDERED: ANUSOL-HC21 GM PR (05:18)
[2017-10-20 05:35] VITALS: BP 159/93
[2017-10-21] MEDS ORDERED: AUGMENTIN875 MG PO (11:48)
[2017-10-21] MEDS ORDERED: LORTAB 5-325 M1 EACH PO (11:48)
== END 2017-10-20 05:42 | disposition home or self-care (01) ==
LOC: EME 05:01
DX: L02.31 Cutaneous abscess of buttock (principal); L02.416 Cutaneous abscess of left lower limb; L02.415 Cutaneous abscess of right lower limb; E11.9 Type 2 diabetes mellitus without complications; F17.200 Nicotine dependence, unspecified, uncomplicated; Z88.6 Allergy status to analgesic agent
CPT/HCPCS: 99281; 99283

== ENCOUNTER 2017-10-21 07:21 | Emergency (ER) | payer OTHER ==
[~2017-10-21] VITALS: Ht 188 cm; Wt 105.0 kg
[~2017-10-21 07:21] MED LIST changes: +ANUSOL-HC21 GM PR
[2017-10-21 07:24] VITALS: BP 138/94
[2017-10-21 08:07] LABS: HEMATOCRIT 47.5 % (38.0-50.0); HEMOGLOBIN 16.6 G/DL (12.5-16.6); MCH 29.2 PG (29.0-34.0); MCHC 34.9 G/DL (30.0-36.0); MCV 83.6 FL (86-99); RBC DIS.WIDTH-CV 12.3 % (11.8-14.6); RBC DIS.WIDTH-SD 37.3 % (39-53); RED BLOOD COUNT 5.68 M/uL (4.00-5.50); WHITE BLOOD COUNT 9.3 K/uL (4.1-10.2)
[2017-10-21 08:17] LABS: ALBUMIN 3.7 g/dL (3.2-4.8); CHLORIDE 97 mEq/L (99-109); POTASSIUM 4.3 mEq/L (3.7-5.4); SODIUM 132 mEq/L (136-147)
[2017-10-21 08:19] LABS: PLATELET COUNT 182 K/uL (156-360)
[2017-10-21 08:20] LABS: TOTAL PROTEIN 7.8 g/dL (6.4-8.3)
[2017-10-21 08:22] LABS: TOTAL BILIRUBIN 0.8 mg/dL (0.0-1.0)
[2017-10-21 08:23] LABS: ALKALINE PHOSPHATASE 195 IU/L (3-129); CREATININE 1.2 mg/dL (0.6-1.3); GFR ESTIMATE (CALCULATED) > 59 mL/min/ (58.99-99999); GLUCOSE 535 mg/dL (70-99)
[2017-10-21 08:24] LABS: UREA NITROGEN (BUN) 18 mg/dL (9-23)
[2017-10-21 08:25] LABS: AST (GOT) 12 IU/L (2-34)
[2017-10-21 08:26] LABS: ALT (GPT) 23 IU/L (3-49)
[2017-10-21 08:27] LABS: APPEARANCE CLEAR ((CLEAR)); BILIRUBIN NEGATIVE; BLOOD NEGATIVE; COLOR STRAW ((YELLOW)); GLUCOSE (STRIP) >=500; KETONES 20; LEUKOCYTES NEGATIVE; NITRITE NEGATIVE; PROTEIN (STRIP) NEGATIVE; UCUL ADDED? NO; UROBILINOGEN 0.2 MG/DL (0.2-1.0)
[2017-10-21 09:06] LABS: CARBON DIOXIDE (BICARBONATE) 24.3 MEQ/L (20-31)
[2017-10-21] MEDS ORDERED: AUGMENTIN875 MG PO (11:48)
[2017-10-21] MEDS ORDERED: LORTAB 5-325 M1 EACH PO (11:48)
== END 2017-10-21 12:42 | disposition home or self-care (01) ==
LOC: EME 07:21
PROVIDERS: Nurse Practitioner Family
PROC: 0D9QXZZ Drainage of Anus, External Approach (ICD-10-PCS; principal; 2017-10-21)
DX: K61.0 Anal abscess (principal); E11.65 Type 2 diabetes mellitus with hyperglycemia; Z79.4 Long term (current) use of insulin; F17.200 Nicotine dependence, unspecified, uncomplicated; Z88.6 Allergy status to analgesic agent
CPT/HCPCS: 72193; 80053; 81003; 82803; 82948; 83605; 85027; 87070; 87075; 87076; 87185; 87205; 99281; 99284; J0595; J7030

== ENCOUNTER 2018-01-04 16:56 | Emergency (ER) | payer OTHER ==
[~2018-01-04] VITALS: Ht 185.4 cm; Wt 107.0 kg
[~2018-01-04 16:56] MED LIST changes: +LORTAB 5-325 M1 EACH PO
[2018-01-04 18:35] LABS: HEMATOCRIT 46.9 % (38.0-50.0); HEMOGLOBIN 16.1 G/DL (12.5-16.6); MCH 29.5 PG (29.0-34.0); MCHC 34.3 G/DL (30.0-36.0); MCV 85.9 FL (86-99); RBC DIS.WIDTH-SD 40.2 % (39-53); RED BLOOD COUNT 5.46 M/uL (4.00-5.50); WHITE BLOOD COUNT 7.3 K/uL (4.1-10.2)
[2018-01-04 18:52] LABS: CHLORIDE 105 mEq/L (99-109); POTASSIUM 3.9 mEq/L (3.7-5.4); SODIUM 137 mEq/L (136-147)
[2018-01-04 18:54] LABS: GLUCOSE 266 mg/dL (70-99)
[2018-01-04 18:57] LABS: TROP-I INTERPRETATION NEGATIVE; TROPONIN-I < 0.01 ng/mL (0.0-0.30)
[2018-01-04 18:58] LABS: CREATININE 0.9 mg/dL (0.6-1.3); GFR ESTIMATE (CALCULATED) > 59 mL/min/ (58.99-99999); UREA NITROGEN (BUN) 8 mg/dL (9-23)
[2018-01-04 19:19] LABS: CREATINE KINASE 166 IU/L (1-294)
[2018-01-04 20:04] LABS: PLAT.SUFFICIENCY ADEQUATE; PLATELET COUNT 224 K/uL (156-360)
[2018-01-04 20:06] LABS: APPEARANCE CLEAR ((CLEAR)); BILIRUBIN NEGATIVE; BLOOD NEGATIVE; COLOR YELLOW ((YELLOW)); GLUCOSE (STRIP) >=500; KETONES 20; LEUKOCYTES NEGATIVE; NITRITE NEGATIVE; PROTEIN (STRIP) NEGATIVE; UCUL ADDED? NO; UROBILINOGEN 0.2 MG/DL (0.2-1.0)
[2018-01-04 20:17] LABS: AMPHETAMINE NEGATIVE (500 ng/mL); BARBITURATES NEGATIVE (200 ng/mL); BENZODIAZEPINES NEGATIVE (150 ng/mL); BUPRENORPHINE NEGATIVE (10 ng/mL); COCAINE NEGATIVE (150 ng/mL); METHADONE NEGATIVE (200 ng/mL); METHAMPHETAMINE NEGATIVE (500 ng/mL); OPIATES (MORPHINE) NEGATIVE (100 ng/mL); OXYCODONE PRESUMPTIVE POSITIVE (100 ng/mL); PHENCYCLIDINE NEGATIVE (25 ng/mL); PROPOXYPHENE NEGATIVE (300 ng/mL); THC CANNABINOIDS PRESUMPTIVE POSITIVE (50 ng/mL); TRICYCLIC ANTIDEPRESSANTS NEGATIVE (300 ng/mL)
[2018-01-04 20:35] LABS: TROP-I INTERPRETATION NEGATIVE; TROPONIN-I < 0.01 ng/mL (0.0-0.30)
[2018-01-04] MEDS ORDERED: NAPROSYN500 MG PO (21:42)
[2018-01-04 23:09] VITALS: BP 135/68
== END 2018-01-04 23:09 | disposition home or self-care (01) ==
LOC: EME 16:56
PROVIDERS: Nurse Practitioner Family
DX: R07.89 Other chest pain (principal); E11.65 Type 2 diabetes mellitus with hyperglycemia; R56.9 Unspecified convulsions; Z79.4 Long term (current) use of insulin; Z88.6 Allergy status to analgesic agent; F17.200 Nicotine dependence, unspecified, uncomplicated; F12.90 Cannabis use, unspecified, uncomplicated
CPT/HCPCS: 70450; 71046; 80048; 81003; 82010; 82550; 82948; 84484; 84999; 85027; 93005; 99281; 99285; J1885; J2060; J7030